=== PATIENT | female | born 1965 | race American Indian/Alaskan Native ===

== ENCOUNTER 2021-04-19 17:10 | Emergency (ER) | payer MEDICARE, MEDICAID ==
--- NOTE | 2021-04-19 17:55 | Emergency Department Report ---
ED Seizure HPI - General Chief Complaint: Seizure Stated Complaint: SEIZURE Time Seen by Provider: 04/19/21 17:24 Source: EMS Mode of arrival: Stretcher Limitations: Altered Mental Status - History of Present Illness Initial Comments: 56-year female with a past medical history of CVA with residual mild right-sided deficit, hypertension, hypothyroidism, mild dementia, depression, and seizures presents to the hospital after [place] 3 [place] Patient resides in [place]. She was here for a graduation of one of her granddaughters. While going to security she had 3 witnessed seizures. She received Versed 5 mg IV prior to arrival. She is awake and oriented x3 but drowsy. She complains of bilateral knee pain. Denies tongue laceration mild urinary incontinence reported. Patient denies headache. Last seizure was 2 days ago. Patient has frequent seizures. Patient complains of bilateral knee pain since seizure 2 days ago. Granddaughter at the bedside Vimpat 200 mg twice daily. Keppra 1500 mg twice daily last dose 9 AM - Related Data Home Medications Medication Instructions Recorded Confirmed Last Taken Acetaminophen/Codeine [Tylenol 1 tab PO Q4H PRN 04/19/21 04/19/21 Unknown /Codeine # 3 tab] Escitalopram [Lexapro] 10 mg PO DAILY 04/19/21 04/19/21 Unknown Insulin Glargine,Hum.rec.anlog 10 units SUB-Q QHS 04/19/21 04/19/21 Unknown [Basaglar Kwikpen U-100] Insulin Glargine,Hum.rec.anlog 15 unit SQ DAILY 04/19/21 04/19/21 Unknown [Basaglar Kwikpen U-100] Lacosamide [Vimpat] 200 mg PO BID 04/19/21 04/19/21 Unknown Levothyroxine Sodium 88 mcg PO DAILY 04/19/21 04/19/21 Unknown [Levothyroxine] RX: Insulin Lispro [Admelog] 100 unit SUB-Q ACHS 04/19/21 04/19/21 Unknown RX: donepeziL [Aricept] 10 mg PO QHS 04/19/21 04/19/21 Unknown RX: levETIRAcetam [Keppra XR TAB] 750 mg PO BID 04/19/21 04/19/21 Unknown Tradjenta 5 mg PO DAILY 04/19/21 04/19/21 Unknown amLODIPine [Norvasc] 5 mg PO DAILY 04/19/21 04/19/21 Unknown carvediloL [Coreg] 6.25 mg PO BID 04/19/21 04/19/21 Unknown Allergies Allergy/AdvReac Type Severity Reaction Status Date / Time aloe AdvReac Unknown Verified 04/19/21 17:54 ED Review of Systems ROS: Stated complaint: SEIZURE Other details as noted in HPI Comment: All other systems reviewed and negative ED Past Medical Hx - Medications Home Medications: Home Medications Medication Instructions Recorded Confirmed Last Taken Type Acetaminophen/Codeine [Tylenol 1 tab PO Q4H PRN 04/19/21 04/19/21 Unknown History /Codeine # 3 tab] Escitalopram [Lexapro] 10 mg PO DAILY 04/19/21 04/19/21 Unknown History Insulin Glargine,Hum.rec.anlog 10 units SUB-Q QHS 04/19/21 04/19/21 Unknown History [Basaglar Kwikpen U-100] Insulin Glargine,Hum.rec.anlog 15 unit SQ DAILY 04/19/21 04/19/21 Unknown History [Basaglar Kwikpen U-100] Lacosamide [Vimpat] 200 mg PO BID 04/19/21 04/19/21 Unknown History Levothyroxine Sodium 88 mcg PO DAILY 04/19/21 04/19/21 Unknown History [Levothyroxine] RX: Insulin Lispro [Admelog] 100 unit SUB-Q ACHS 04/19/21 04/19/21 Unknown History RX: donepeziL [Aricept] 10 mg PO QHS 04/19/21 04/19/21 Unknown History RX: levETIRAcetam [Keppra XR TAB] 750 mg PO BID 04/19/21 04/19/21 Unknown History Tradjenta 5 mg PO DAILY 04/19/21 04/19/21 Unknown History amLODIPine [Norvasc] 5 mg PO DAILY 04/19/21 04/19/21 Unknown History carvediloL [Coreg] 6.25 mg PO BID 04/19/21 04/19/21 Unknown History ED Physical Exam - General Limitations: Altered Mental Status - Other Other exam information: General: No acute distress Head: Atraumatic Eyes: normal appearance ENT: Moist mucous membranes Neck: Normal appearance, no midline tenderness Chest: Clear to auscultation bilaterally CV: Regular rate and rhythm Abdomen: Soft, normal bowel sounds, nontender, nondistended, no rebound or guarding Back: Normal inspection Extremity: Normal inspection, full range of motion Neuro: Alert O x 3, no facial asymmetry, speech clear, mild right upper lower extremity weakness compared to the left. Chronic as per patient Psych: Appropriate behavior Skin: No rash ED Course Vital Signs 04/19/21 17:15 Pulse Rate 66 Respiratory 16 Rate Blood Pressure 166/94 [Right] O2 Sat by Pulse 96 Oximetry - Consultations Consultation #2: 04/19/21 Case was discussed with neurologist who advised addition of 1 g of Keppra IV to help control seizures. See consult note ED Medical Decision Making - Lab Data Result diagrams: 04/19/21 17:59 - Radiology Data Radiology results: report reviewed Bilateral knees-3 views each INDICATION: b/l knee pain after seizure. COMPARISON: None. IMPRESSION: No acute osseous abnormality. Soft tissues are normal. Normal alignment. Bilateral tricompartmental DJD, moderately advanced in each respective medial compartment. - Medical Decision Making 56-year-old female with seizure disorder with frequent seizures presents to the hospital today after [place] seizures [place] the airport. Received Versed 5 mg prior to arrival. Loaded with 1 g of Keppra here in the ED. Patient has not had any additional seizure activity and appears to be at baseline mental status with mild drowsiness. Chemistries unremarkable. Accu-Chek normal. Bilateral knee x-rays positive for arthritis without acute fracture. Patient be discharged to continue on her medications tonight. Critical Care Time: No Critical care attestation.: If time is entered above; I have spent that time in minutes in the direct care of this critically ill patient, excluding procedure time. ED Disposition Clinical Impression: Seizure, Arthritis of knee Disposition: 01 HOME / SELF CARE / HOMELESS Is pt being admited?: No Does the pt Need Aspirin: No Condition: Stable Instructions: Seizure, Adult, Kgyx-og-Sefz, Arthritis, Adfq-yc-Hvhg Additional Instructions: Continue your current medication as prescribed. Follow-up with your doctor or doctor/clinic provided. Return if symptoms worsen as indicated by your discharge instructions. Referrals: Your, neurologist [Other] - 3-5 Days Time of Disposition: 19:21
[2021-04-19] MEDS ORDERED: levETIRAcetam 1000 MG/NS 0.75% 1,000 MG/100 ML BAG IV ONE (18:10)
--- NOTE | 2021-04-19 18:15 | Emergency Department Report ---
ED Seizure HPI - General Chief Complaint: Seizure Stated Complaint: SEIZURE Time Seen by Provider: 04/19/21 17:24 Source: EMS Mode of arrival: Stretcher Limitations: Altered Mental Status - History of Present Illness Initial Comments: [facility] Consult Note # Demographics Consult Type: General Neurology Patient Location: Emergency Room First Name: Debra Last Name: Georgette Date of : 1965 Age: 56 Gender: Female Facility: [facility] Time of Initial Page (Eastern Time): 04/19/2021, 17:53 Time of Return Call (Eastern Time): 04/19/2021, 17:55 Phone Only Consult: The ER physician reported three seizures at the airport. On Keppra & VIMPAT for known seizure history. Question was regarding loading her with an additional 1g Keppra, as the patient reportedly had her standard dose scheduled for 9pm. Given the reported breakthrough events & lack of toxicity of second-generation anticonvulsants, giving levetiracetam 1g IV x1 now was suggested to try & help control the patient's breakthrough seizures. - Related Data Home Medications Medication Instructions Recorded Confirmed Last Taken Escitalopram [Lexapro] 10 mg PO DAILY 04/19/21 04/19/21 Unknown Lacosamide [Vimpat] 200 mg PO BID 04/19/21 04/19/21 Unknown Tradjenta 5 mg PO DAILY 04/19/21 04/19/21 Unknown donepeziL [Aricept] 10 mg PO QHS 04/19/21 04/19/21 Unknown Allergies Allergy/AdvReac Type Severity Reaction Status Date / Time aloe AdvReac Unknown Verified 04/19/21 17:54 ED Review of Systems ROS: Stated complaint: SEIZURE Other details as noted in HPI ED Past Medical Hx - Medications Home Medications: Home Medications Medication Instructions Recorded Confirmed Last Taken Type Escitalopram [Lexapro] 10 mg PO DAILY 04/19/21 04/19/21 Unknown History Lacosamide [Vimpat] 200 mg PO BID 04/19/21 04/19/21 Unknown History Tradjenta 5 mg PO DAILY 04/19/21 04/19/21 Unknown History donepeziL [Aricept] 10 mg PO QHS 04/19/21 04/19/21 Unknown History ED Physical Exam - General Limitations: Altered Mental Status ED Course Vital Signs 04/19/21 17:15 Pulse Rate 66 Respiratory 16 Rate Blood Pressure 166/94 [Right] O2 Sat by Pulse 96 Oximetry Critical care attestation.: If time is entered above; I have spent that time in minutes in the direct care of this critically ill patient, excluding procedure time. ED Disposition Clinical Impression: Seizure Disposition: 30 STILL A PATIENT Is pt being admited?: Yes Condition: Stable
[2021-04-19 18:39] LABS: Albumin 3.4 g/dL (3.9-5); Calcium 9.6 mg/dL (8.4-10.2)
--- NOTE | 2021-04-19 18:41 | XRay Report ---
Bilateral knees-3 views each INDICATION: b/l knee pain after seizure. COMPARISON: None. IMPRESSION: No acute osseous abnormality. Soft tissues are normal. Normal alignment. Bilateral tr icompartmental DJD, moderately advanced in each respective medial compartment. Signer Name: Efrain Montenegro MD Signed: 04/19/2021 6:36 PM Workstation Name: [id number]
[2021-04-19 19:47] VITALS: BP 147/80
--- NOTE | 2021-04-20 18:36 | Electrocardiograph Report ---
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
== END 2021-04-20 05:25 | disposition home or self-care (01) ==
LOC: ED 17:10
DX: R56.9 Unspecified convulsions (principal); M17.9 Osteoarthritis of knee, unspecified; Z91.09 Other allergy status, other than to drugs and biological substances
CPT/HCPCS: 36415; 73562; 80053; 83735; 93005; 96374; 99284; J1953